=== PATIENT | male | born 1970 | race Caucasian/White ===

== ENCOUNTER 2021-06-02 16:36 | Emergency (ER) | payer OTHER, SELFPAY ==
[2021-06-02 17:23] VITALS: BP 205/134; PULSE 65; RESP 16; TEMP 36.9; O2SAT 99; BMI 27.3
--- NOTE | 2021-06-02 18:15 | ECG_ITS ---
Test Reason : hypertension/hear block Blood Pressure : / mmHG Vent. Rate : 059 BPM Atrial Rate : 059 BPM P-R Int : 186 ms QRS Dur : 136 ms QT Int : 448 ms P-R-T Axes : 033 -26 153 degrees QTc Int : 443 ms Sinus bradycardia Left ventricular hypertrophy with QRS widening and repolarization abnormality ( R in aVL , Jose Elias product ) Cannot rule out Septal infarct , age undetermined Abnormal ECG No previous ECGs available Referred By: Gomez Meléndez Electronically Signed By:ALIVIA BRANHAM
--- NOTE | 2021-06-02 18:16 | ED.GENADULT ---
HPI - General Adult General Chief complaint: General Medical Stated complaint: High blood pressure Time Seen by Provider: 06/02/21 18:06 Source: patient History of Present Illness HPI narrative: Patient without significant medical history states his blood pressures been significantly elevated for at least the last 7 weeks. He went for colonoscopy 7 weeks ago and was found to be hypertensive. The made a follow-up appointment with coating technician 1 week ago and was found to still be significantly hypertensive. In addition he had a left bundle-branch block on his EKG which is apparently new. They did cardiac enzymes at the time and are negative. I set him up for an echocardiogram which was today. Apparently that was unremarkable but his blood pressure was still significantly elevated with a systolic over 200 and diastolic over 100. Recommended he come to the emergency department. Patient denies significant symptoms. He states he has a slight headache but no weakness numbness paresthesias or dizziness. No chest pain or shortness of breath No other significant causative factors for his hypertension. He was unable to get an immediate appointment with his PCP to talk about starting medications. He is here interested in starting blood pressure medicines. Related Data Previous Rx's Medication Instructions Recorded lisinopril 10 mg tablet 10 mg PO DAILY #30 tab 06/02/21 Allergies Allergy/AdvReac Type Severity Reaction Status Date / Time No Known Allergies Allergy Verified 06/02/21 18:15 Review of Systems Cardiovascular: Comments: No chest pain Respiratory: Comments: No shortness of breath Gastrointestinal: Comments: No abdominal pain Musculoskeletal: Comments: No weakness numbness or paresthesias Physical Exam Vital Signs: Vital Signs: Last Vital Signs Temp 98.5 F 06/02/21 17:23 Pulse 65 06/02/21 17:23 Resp 16 06/02/21 17:23 BP 205/134 H 06/02/21 17:23 Pulse Ox 99 06/02/21 17:23 BMI result Body Mass Index 27.3 Blood pressure significantly elevated Const: Other: Awake alert no acute distress Resp: Other: No respiratory distress Skin: Other: Warm pink and dry without rash Neuro: Other: Alert and oriented x3. Neurologically nonfocal Course Course Course Narrative: Patient with a least 7 weeks of uncontrolled high blood pressure without any normal values in between. No clinical evidence of end-organ damage at this point. Will repeat his EKG. He had blood work last week so I do not think we need to repeat that today. I will start him on lisinopril here in the emergency department and given a prescription for home. Discharge Plan Discharge Clinical Impression: Hypertension Patient Disposition: Home, Self-Care Instructions: Chronic Hypertension (ED), Heart Healthy Diet (ED) Additional Instructions: Be sure to check yourblood pressure at least twice daily. Prescriptions: New lisinopril 10 mg tablet 10 mg PO DAILY Qty: 30 RF: 0
[2021-06-02 18:39] VITALS: BP 212/118; PULSE 58
[2021-06-02] MEDS: lisinopriL 10 MG TABLET PO (18:39)
[2021-06-02 18:43] VITALS: BP 198/129
== END 2021-06-02 18:49 | disposition home or self-care (01) ==
LOC: HO.ED 18:44
PROVIDERS: Emergency Provider Emergency Medicine
DX: I10 Essential (primary) hypertension (principal); I44.7 Left bundle-branch block, unspecified
CPT/HCPCS: 93005; 99283